=== PATIENT | female | born 1960 | race Caucasian/White ===

== ENCOUNTER 2017-11-14 11:06 | Inpatient (IN) | payer MEDICARE, MEDICAID ==
[~2017-11-14] VITALS: Ht 177.8 cm; Wt 66.9 kg
[~2017-11-14 11:06] MED LIST: ADVAIR IH; ALBUTEROL SULFAT3 M3 IH; ALBUTEROL0.83 MG/ML IH; ALLERGY RELIEF10 M1 PO; ALPRAZOLAM1 MG PO; ARCAPTA IH; CARDI-OMEGA1000 MG PO; CARVEDILOL25 MG PO; CITALOPRAM20 MG PO; CLOTRIMAZOLE TR10 MG MM; CLOTRIMAZOLE10 MG MM; COREG25 MG PO; CYCLOBENZAPRINE10 MG PO; EFFEXOR-XR150 MG PO; ERYTHROMYCIN250 MG PO; FLEXERIL10 MG PO; FORADIL INHAL144 MCG IH; FUROSEMIDE40 MG PO; HYDROCODONE/APAP; KLONOPIN 1MG1 MG PO; LASIX40 MG PO; LEXAPRO20 MG PO; LISINOPRIL10 MG PO; LORTAB 10/500 51 TAB PO; MICRO-K 1010 MEQ PO; MYSOLINE 5050 MG/TAB PO; NEURONTIN300 MG PO; NEURONTIN300 MG/CAP PO; NORCO 325 MG-101 TAB PO; OMEPRAZOLE D/R20 MG PO; PHILLIPS COLON HEALT; POTASSIUM CHLO10 ME2 PO; PREMARIN 0.60.625 M1 PO; PREMARIN1.25 MG PO; PRILOSEC 20MG20 MG PO; PRIMIDONE50 MG PO; PROTONIX 40MG T40 MG PO; PROTONIX40 MG PO; RESTORIL15 MG PO; RITALIN10 MG PO; SEROQUEL100 MG PO; SEROQUEL50 MG PO; SINGULAIR10 MG PO; SPIRIVA18 MCG IH; TEMAZEPAM15 MG PO; THEO-24400 MG PO; THEOPHYLLINE200 M1 PO; THEOPHYLLINE200 MG PO; VENTOLIN0.09 MG IH; XANAX1 MG PO; ZITHROMAX 250M250 MG PO
[2017-11-14] MEDS ORDERED: NEURONTIN600 MG/TAB PO ×2 (13:27→13:28)
[2017-11-14] MEDS ORDERED: MYSOLINE 5050 MG/TAB PO (13:29)
[2017-11-14] MEDS ORDERED: FLEXERIL 1010 MG/TAB PO (14:11)
[2017-11-14] MEDS ORDERED: DILAUDID 4MG TAB4 MG PO (14:11)
[2017-11-14] MEDS ORDERED: IMITREX50 MG PO (14:11)
[2017-11-14] MEDS ORDERED: IRON TABLETS325 MG PO (14:13)
[2017-11-14] MEDS ORDERED: VITAMINC1000TA PO (14:13)
[2017-11-14] MEDS ORDERED: FOLIC ACID800 MCG PO (14:13)
[2017-11-14] MEDS ORDERED: INCRUSE EL62.5 MCG/A IH (14:14)
[2017-11-14] MEDS ORDERED: BREO IH (14:14)
[2017-11-18] VITALS (11 sets, daily range): BP systolic 99–120; BP diastolic 61–81; PULSE 80–100; TEMP 97.5–98.7
[2017-11-19 02:29] VITALS: BP 98/64; PULSE 82; TEMP 98
[2017-11-19 04:57] VITALS: BP 99/68; PULSE 88; TEMP 98
[2017-11-19 07:23] LABS: HEMATOCRIT 31.9 % (37.0-47.0); HEMOGLOBIN 10.6 g/dl (12.5-16.0)
[2017-11-19] MEDS ORDERED: PERCOCET 325 MG1 TA2 PO (07:39)
[2017-11-19] MEDS ORDERED: ASPI325T6 PO (07:39)
[2017-11-19 08:26] VITALS: BP 110/72; PULSE 104; TEMP 97.6
== END 2017-11-19 11:00 | disposition home or self-care (01) | DRG 483 ==
LOC: JCC 11-18 05:18
PROVIDERS: Orthopaedic Surgery Sports Medicine
PROC: 0RRJ0JZ Replacement of Right Shoulder Joint with Synthetic Substitute, Open Approach (ICD-10-PCS; principal; 2017-11-18 07:30)
DX: M19.011 Primary osteoarthritis, right shoulder (principal); J45.909 Unspecified asthma, uncomplicated; J44.9 Chronic obstructive pulmonary disease, unspecified; I10 Essential (primary) hypertension; I34.1 Nonrheumatic mitral (valve) prolapse; G40.909 Epilepsy, unspecified, not intractable, without status epilepticus
CPT/HCPCS: A4565; A9284; C1713; C1776; J0171; J1170; J1885; J2250; J2405; J2550; J2704; J2795; J3010

== ENCOUNTER → 2019-02-26 | Outpatient (CLI) | payer MEDICARE, MEDICAID ==
[~2019-02-26] MED LIST changes: +ASPI325T6 PO; +BREO IH; +DILAUDID 4MG TAB4 MG PO; +FLEXERIL 1010 MG/TAB PO; +FOLIC ACID800 MCG PO; +IMITREX50 MG PO; +INCRUSE EL62.5 MCG/A IH; +IRON TABLETS325 MG PO; +NEURONTIN600 MG/TAB PO; +PERCOCET 325 MG1 TA2 PO; +VITAMINC1000TA PO
== END ==
LOC: COL.RAD 08:45
DX: M25.511 Pain in right shoulder (principal); Z96.611 Presence of right artificial shoulder joint
CPT/HCPCS: Q9967

== ENCOUNTER 2019-03-26 13:37 | Inpatient (IN) | payer MEDICARE, MEDICAID ==
[~2019-03-26] VITALS: Ht 177.8 cm; Wt 71.0 kg
[2019-05-05] VITALS (11 sets, daily range): BP systolic 104–131; BP diastolic 71–90; PULSE 74–96; TEMP 97–98.8
[2019-05-05] MEDS ORDERED: DAZIDOX10 MG PO (03:09)
[2019-05-05] MEDS ORDERED: PREVALITE4 GM/5.5 G PO (03:10)
[2019-05-05] MEDS ORDERED: TOPROL XL 50MG50 MG PO (03:11)
[2019-05-05] MEDS ORDERED: XYZAL5 MG PO (03:12)
[2019-05-05] MEDS ORDERED: MOBIC15 MG PO (03:12)
[2019-05-05] MEDS ORDERED: PRILOSEC 20MG20 MG PO (03:13)
--- NOTE | 2019-05-05 10:50 | NUR ---
PT TO ROOM 329 PER BED WITH REPORT FROM [facility] PACU @1000. PT IS A/O X3, DRESSING TO RIGHT SHOULDER CDI WITH AQUACEL OVER INCISION. LEFT ARM IN IMMOBILIZER SLING. RADIAL PULSES PALPABLE. PT VOIDED ON ARRIVAL TO FLOOR, ASSISTED BACK TO BED, VSS EATING AND DRINKING WELL.
--- NOTE | 2019-05-05 11:34 | NUR ---
Initial visit; Patient thanked for looking in on her. Though a little drowsy, she and Mail Rider had a short visit, wished Kirea well and by request will look in on patient tomorrow.
--- NOTE | 2019-05-05 13:39 | NUR ---
ELLIOT met with the patient to discuss a discharge plan. The pt lives alone in [place]. The pt's PCP is Dr. Juvencio Gibson and Dr. Bacilio Carrington and the pt receives her medications from [facility]. The pt reports no difficulties obtaining her medications. The pt has a cane and has [place] to assist with any needs. The pt does not have advanced directives in the EMR. But she reports she will complete them. The pt plans to return home with outpatient therapy. There are no additional needs at this time.
--- NOTE | 2019-05-05 16:20 | NUR ---
PT UP TO BR TO VOID.
--- NOTE | 2019-05-05 19:01 | NUR ---
report to Ingrid Buchanan.
--- NOTE | 2019-05-05 20:00 | NUR ---
Report received. Assumed care for day light relief operator. Assessment complete. Out of bed walking around room. Denies need for pain medication. Voiding well. Right shoulder with CDI aquacell dressing. Immobolizer on. Plan of care discussed for this shift. Fresh ice pack applied. Will monitor.
[2019-05-06 02:00] VITALS: BP 114/80; PULSE 75; TEMP 97.8
[2019-05-06 06:00] VITALS: BP 111/74; PULSE 76; TEMP 98
--- NOTE | 2019-05-06 06:00 | NUR ---
Has rested this shift off and on. Did have some increased pain that scheduled kiesha did take care of-Dilaudid given per dr order. Did ambulate last night approx 150 feet. Tolerating PO. Fresh ice pack applied to right shoulder-immobolizer on. Encouraged to call for needs. verbalizes understanding. Will monitor.
[2019-05-06 06:38] LABS: HEMOGLOBIN 10.2 g/dl (12.5-16.0)
[2019-05-06 06:54] LABS: HEMATOCRIT 29.9 % (37.0-47.0)
[2019-05-06] MEDS ORDERED: ASPI325T6 PO (07:00)
[2019-05-06 07:17] VITALS: BP 141/89; PULSE 81; TEMP 98
--- NOTE | 2019-05-06 08:50 | NUR ---
PT UP TO RECLINER FOR BREAKFAST. DRESSING CDI. VSS, ASSESSMETS COMPLETE. VSS, PROBABLE DISCHARGE LATER THIS DAY.
--- NOTE | 2019-05-06 09:38 | NUR ---
DISCHARGE INSTUCTIONS REVIEWED WITH PATIENT QUESTIONS ANSWERED. PT LEFT AMBULATORY WITH STAFF TO FRONT.
--- NOTE | 2019-05-06 10:46 | NUR ---
Follow-up visit; Patient thanked Biological Sciences Instructor for looking in on her and offering God's blessings again before she was to be discharged from hospital.
== END 2019-05-06 09:39 | disposition home or self-care (01) | DRG 483 ==
LOC: JCC 05-05 05:33
PROVIDERS: ADMIT Orthopaedic Surgery Sports Medicine
PROC: 0RRJ00Z Replacement of Right Shoulder Joint with Reverse Ball and Socket Synthetic Substitute, Open Approach (ICD-10-PCS; principal; 2019-05-05 07:30)
DX: T84.098A Other mechanical complication of other internal joint prosthesis, initial encounter (principal); J44.9 Chronic obstructive pulmonary disease, unspecified; I10 Essential (primary) hypertension; E78.00 Pure hypercholesterolemia, unspecified; Y83.1 Surgical operation with implant of artificial internal device as the cause of abnormal reaction of the patient, or of later complication, without mention of misadventure at the time of the procedure; K21.9 Gastro-esophageal reflux disease without esophagitis; M81.0 Age-related osteoporosis without current pathological fracture; I83.90 Asymptomatic varicose veins of unspecified lower extremity; J30.2 Other seasonal allergic rhinitis; I34.1 Nonrheumatic mitral (valve) prolapse; G47.33 Obstructive sleep apnea (adult) (pediatric); G89.29 Other chronic pain; G43.909 Migraine, unspecified, not intractable, without status migrainosus; Z86.73 Personal history of transient ischemic attack (TIA), and cerebral infarction without residual deficits; Z90.710 Acquired absence of both cervix and uterus
CPT/HCPCS: A9284; C1776; J0690; J1100; J1170; J1885; J2250; J2405; J2704; J3010; J3370; J7120

== ENCOUNTER → 2019-08-06 | Outpatient (CLI) | payer MEDICARE, MEDICAID ==
[~2019-08-06] MED LIST changes: +DAZIDOX10 MG PO; +MOBIC15 MG PO; +PREVALITE4 GM/5.5 G PO; +TOPROL XL 50MG50 MG PO; +XYZAL5 MG PO
== END ==
LOC: COL.RAD 14:00
DX: M25.551 Pain in right hip (principal)
CPT/HCPCS: J3301; Q9967